=== PATIENT | female | born 1965 | race Caucasian/White ===

== ENCOUNTER 2018-01-15 07:42 | Emergency (ER) | payer BC ==
[2018-01-15 07:57] VITALS: BP 130/68
--- NOTE | 2018-01-15 07:58 | UC ---
Throat Pain/Nasal Vito HPI - HPI Summary HPI Summary: Patient is 52 year old female, without any significant past medical history who present today with sore throat and fevers for past 3 days. Associated symptoms: Swollen glands. 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 No skin rash. Denies any chest pain or shortness of breath . No diaphoresis. Denies any abdominal pain , nausea or vomiting , diarrhea or constipation. Has tried tylenol for fever and her symtoms have been about the same. - History of Current Complaint Stated Complaint: ST/FEVER Time Seen by Provider: 01/15/18 07:51 Hx Obtained From: Patient ?: No - s/p hysterectomy Onset/Duration: Sudden Onset Severity: Moderate Pain Intensity: 5 Pain Scale Used: 0-10 Numeric Cough: Nonproductive Associated Signs & Symptoms: Positive: Fever - Allergies/Home Medications Allergies/Adverse Reactions: Allergies Allergy/AdvReac Type Severity Reaction Status Date / Time Penicillins Allergy Mild Rash Verified 01/15/18 07:50 Home Medications: Home Medications Estrogens, Conjugated [Premarin] 1 tab QAM 01/15/18 [History Confirmed 01/15/18] PMH/Surg Hx/FS Hx/Imm Hx Previously Healthy: Yes Other Endocrine History: negative Other Cardiovascular History: negative Other Respiratory History: negative Other GI/ History: negative Other Neurological History: negative Other Psychological History: negative Other Cancer History: negative - Surgical History Surgical History: Yes Other Surgical History: hysterectomy, C section and spine surgery - Family History Known Family History: Positive: Hypertension, Diabetes Family History: Father- Multiple myeloma. Mother- Cancer- breast and lung - Social History Occupation: Employed Full-time Lives: With Family Alcohol Use: Occasionally Substance Use Type: None Smoking Status (MU): Never Smoked Tobacco Review of Systems Constitutional: Fever, Chills, Fatigue Skin: Negative Eyes: Negative ENT: Negative, Sore Throat Respiratory: Negative Cardiovascular: Negative Gastrointestinal: Negative Genitourinary: Negative Motor: Negative Neurovascular: Negative Musculoskeletal: Negative Neurological: Negative Psychological: Negative Is Patient Immunocompromised?: No All Other Systems Reviewed And Are Negative: Yes Physical Exam Triage Information Reviewed: Yes Appearance: Well-Appearing, No Pain Distress Vital Signs Reviewed: Yes Eyes: Positive: Conjunctiva Clear ENT: Positive: Hearing grossly normal, Pharyngeal erythema, TMs normal. Negative: Nasal congestion, Nasal drainage, Tonsillar swelling, Tonsillar exudate, Muffled voice, Hoarse voice Neck: Positive: Supple, Other: - Tender anterior cervical lymphadenopathy Respiratory Exam: Normal Respiratory: Positive: Chest non-tender, Lungs clear, Normal breath sounds. Negative: Crackles, Rhonchi, Stridor, Wheezing Cardiovascular Exam: Normal Cardiovascular: Positive: RRR, No Murmur, Pulses Normal Abdominal Exam: Normal Abdomen Description: Positive: Nontender, No Organomegaly, Soft. Negative: Distended, Guarding Bowel Sounds: Positive: Present Musculoskeletal Exam: Normal Neurological Exam: Normal Neurological: Positive: Alert Psychological Exam: Normal Psychological: Positive: Age Appropriate Behavior Skin Exam: Normal Skin: Negative: rashes Throat Pain/Nasal Course/Dx - Course Course Of Treatment: During the visit today, we obtained rapid strep and flu and she tested positive for strep throat. We discussed the findings and further plan. I will prescribe the azithromycin to the pharmacy since she is allergic to penicillin. Patient expressed understanding . - Differential Dx/Diagnosis Provider Diagnoses: streptococcal pharyngitis Discharge - Sign-Out/Discharge Documenting (check all that apply): Discharge/Admit/Transfer - Discharge Plan Condition: Stable Disposition: HOME Prescriptions: Azithromycin TAB* [Zithromax TAB (Z-SAMIA) 250 mg #6 tabs] 2 tab PO .TODAY, THEN 1 DAILY #1 samia Patient Education Materials: Strep Throat (ED) Referrals: Family [facility] [Primary Care Provider] - 1 Week Additional Instructions: Start taking the antibiotic . It has been prescribed to the pharmacy . Throat lozenges and gargles for comfort Tylenol/ ibuprofen for fever as needed. Follow up with your primary care doctor within 1 week. Return to Urgent care / ER if symptoms get worse. - Billing Disposition and Condition Condition: STABLE Disposition: Home
== END 2018-01-15 08:33 | disposition home or self-care (01) ==
LOC: UCCORT 07:42
DX: J02.0 Streptococcal pharyngitis (principal); Z88.0 Allergy status to penicillin
CPT/HCPCS: 87502; 87651; 99202; G0463